=== PATIENT | female | born 1995 | race Two or more races ===

== ENCOUNTER 2024-03-22 18:19 | Emergency (ER) | payer BC ==
[~2024-03-22] VITALS: Ht 172.7 cm; Wt 129.5 kg
[2024-03-22 19:22] LABS: Urine Bacteria FEW /hpf (None Seen); Urine Blood 3+ /uL (Negative); Urine Clarity Ex.Turbid (Clear); Urine Color Light-Orange (Yellow); Urine Hyaline Cast FEW /lpf (0 - 2); Urine Mucus FEW (None Seen); Urine Protein, UAD 3+ (Negative); Urine Specific Gravity 1.033 (1.001-1.035); Urine Urobilinogen Normal (Negative); Urine WBC 50 /hpf (0 - 5); Urine pH 6.5 (5.0-9.0)
[2024-03-22 19:27] LABS: Basophils # (auto) 0 10 ^3/uL (0-0.2); Basophils % (auto) 0.4 % (0.0-2.0); Eosinophils # (auto) 0.1 10 ^3/uL (0-0.8); Eosinophils % (auto) 0.8 % (0.0-7.0); Hematocrit 45.1 % (36.0-46.0); Hemoglobin 15.1 g/dL (12.2-16.2); Lymphocytes # (auto) 2.1 10 ^3/uL (0.4-5.4); Lymphocytes % (auto) 23.8 % (10.0-50.0); Mean Corpuscular Hemoglobin 30.1 pg (28.0-32.0); Mean Corpuscular Hgb Conc. 33.6 g/dL (32.0-36.0); Mean Corpuscular Volume 89.6 fL (80.0-100.0); Monocytes % (auto) 11.1 % (0.0-12.0); Neutrophils # (auto) 5.7 10 ^3/uL (1.6-8.6); Neutrophils % (auto) 63.9 % (37.0-80.0); Platelet Count (auto) 395 10^3/uL (140-450); Red Blood Cells 5.03 10^6/uL (4.0-5.20); Red Cell Distribution Width 13.4 % (11.8-14.3)
--- NOTE | 2024-03-22 19:28 | ED.PDOC ---
GI ASSESSMENT HPI Comments 28-year-old female who came to ER for abdominal pain. Patient is a , approximately 20 weeks . States for the past 2 days she has been experiencing lower abdominal pain, associated bouts of nausea, vomiting, and loose nonbloody diarrhea. States she has a hard time keeping anything in. She denies any vaginal bleeding. Possibly ate some spoiled food. Chief Complaint: Abdominal Pain Time Seen by MD: 19:28 Reviewed Notes: Nurses Notes Allergies: Coded Allergies: NO KNOWN ALLERGIES (Unverified , 03/22/24) Home Meds Active Scripts Metoclopramide Hcl (Reglan) 5 Mg Tab, 5 MG PO Q6HP PRN for 10 Days, #40 TAB Prov:GHASSAN CAMARENA MD 03/22/24 Cefdinir (Cefdinir) 300 Mg Cap, 1 CAP PO BID for 7 Days, #14 CAP Prov:GHASSAN CAMARENA MD 03/22/24 Information Source: Patient Mode of Arrival: Ambulatory Timing: Days Duration: Intermittent Prehospital treatment: None Quality: Aching Vomitus: Watery Stool: Loose, Watery Severity: Moderate Recent: Possible spoiled food Recent Hx of: Current Pain Location: Suprapubic Modifying Factors: Nothing Associated sign and symptoms: Nausea, Vomiting, Diarrhea, Abdominal Pain Past Medical History PAST MEDICAL HISTORY: Denies Surgical History: Denies all surgeries SAP DATA ANALYST History: Denies all SAP DATA ANALYST Hx 4 Para 3 Family History Family History: Reviewed,noncontributory to illness Social History Smoker: Non-Smoker Alcohol: Denies ETOH Use Drugs: Denies Drug Use Lives In: Home Constitutional: denies: chills, diaphoresis, fatigue, fever, malaise, sweats, weakness, others EENTM: denies: blurred vision, double vision, ear bleeding, ear discharge, ear drainage, ear pain, ear ringing, eye pain, eye redness, hearing loss, mouth pain, mouth swelling, nasal discharge, nose bleeding, nose congestion, nose pain, photophobia, tearing, throat pain, throat swelling, voice changes, others Respiratory: denies: cough, hemoptysis, orthopnea, SOB at rest, shortness of breath, SOB with excertion, stridor, wheezing, others Cardiovascular: denies: chest pain, dizzy spells, diaphoresis, Dyspnea on exertion, edema, irregular heart beat, left arm pain, lightheadedness, palpitations, PND, syncope, others Gastrointestinal: reports: abdominal pain, diarrhea, nausea, poor appetite, vomiting; denies: abdomen distended, blood streaked bowels, constipated, dysphagia, difficulty swallowing, hematemesis, melena, poor fluid intake, rectal bleeding, rectal pain, others Genitourinary: denies: abnormal vagina bleeding, burning, dyspareunia, dysuria, flank pain, frequency, hematuria, incontinence, pain, , vagina discharge, urgency, others Neurological: denies: dizziness, fainting, headache, left sided numbness, left sided weakness, numbness, paresthesia, pre-existing deficit, right sided numbness, right sided weakness, seizure, speech problems, tingling, tremors, weakness, others Musculoskeletal: denies: back pain, gout, joint pain, joint swelling, muscle pain, muscle stiffness, neck pain, others Integumetry: denies: bruises, change in color, change in hair/nails, dryness, laceration, lesions, lumps, rash, wounds, others Allergic/Immunocompromised: denies: Difficulty Healing, Frequent Infections, Hives, Itching, others Hematologic/Lymphatic: denies: anemia, blood clots, easy bleeding, easy bruising, swollen glands, others Endocrine: denies: excessive hunger, excessive sweating, excessive thirst, excessive urination, flushing, intolerance to cold, intolerance to heat, unexplained weight gain, unexplained weight loss, others Psychiatric: denies: anxiety, bipolar disorder, depression, hopeless, panic disorder, schizophrenia, sleepless, suicidal, others Physical Exam General Appearance: No Apparent Distress, Normal HEENT: Normal ENT Inspection, Pharynx Normal, TMs Normal Neck: Full Range of Motion, Non-Tender, Normal, Normal Inspection Respiratory: Chest Non-Tender, Lungs Clear, No Accessory Muscle Use, No Respiratory Distress, Normal Breath Sounds Cardiovascular: No Edema, No JVD, No Murmur, No Gallop, Normal Peripheral Pulses, Regular Rate/Rhythm Breast Exam: Deferred Gastrointestinal: No Organomegaly, Non Tender, No Pulsatile Mass, Normal Bowel Sounds, Soft Genitalia: Deferred Pelvic: Deferred Rectal: Deferred Extremities: No calf tenderness, Normal capillary refill, Normal inspection, Normal range of motion, Non-tender, No pedal edema Musculoskeletal : Apperance: Normal Neurologic: Alert, wildfire prevention specialist II-XII nml as Tested, No Motor Deficits, Normal Affect, Normal Mood, No Sensory Deficits Cerebellar Function: Normal Reflexes: Normal Skin: Dry, Normal Color, Warm Lymphatic: No Adenopathy Was a procedure done? Was a procedure done?: No GI differential Dx Differential Diagnosis: Diverticular disease, Gastritis/PUD, Gastroenteritis, UTI, Dehydration, Electrolyte Imbalance, Food Poisoning, X-Ray, Labs, Meds, VS Vital Signs Date Time Temp Pulse Resp B/P (MAP) Pulse Ox O2 Delivery O2 Flow Rate FiO2 03/22/24 22:02 97.7 113 18 116/83 (94) 98 97.7 03/22/24 18:57 97.1 123 16 135/89 (104) 98 Lab Test 03/22/24 18:58 03/22/24 18:45 Range/Units White Blood Count 9.0 4.4-10.8 10^3/uL Red Blood Count 5.03 4.0-5.20 10^6/uL Hemoglobin 15.1 12.2-16.2 g/dL Hematocrit 45.1 36.0-46.0 % Mean Corpuscular Volume 89.6 80.0-100.0 fL Mean Corpuscular Hemoglobin 30.1 28.0-32.0 pg Mean Corpuscular Hemoglobin Concent 33.6 32.0-36.0 g/dL Red Cell Distribution Width 13.4 11.8-14.3 % Platelet Count 395 140-450 10^3/uL Mean Platelet Volume 6.6 L 6.9-10.8 fL Neutrophils (%) (Auto) 63.9 37.0-80.0 % Lymphocytes (%) (Auto) 23.8 10.0-50.0 % Monocytes (%) (Auto) 11.1 0.0-12.0 % Eosinophils (%) (Auto) 0.8 0.0-7.0 % Basophils (%) (Auto) 0.4 0.0-2.0 % Neutrophils # (Auto) 5.7 1.6-8.6 10 ^3/uL Lymphocytes # (Auto) 2.1 0.4-5.4 10 ^3/uL Monocytes # (Auto) 1.0 0-1.3 10 ^3/uL Eosinophils # (Auto) 0.1 0-0.8 10 ^3/uL Basophils # (Auto) 0 0-0.2 10 ^3/uL Nucleated Red Blood Cells 0.0 % Sodium Level 139 136-145 mmol/L Potassium Level 3.1 L 3.5-5.1 mmol/L Chloride Level 105 98-107 mmol/L Carbon Dioxide Level 21 20-31 mmol/L Anion Gap 13 5-15 Blood Urea Nitrogen 8 L 9-23 mg/dL Creatinine 0.84 0.550-1.02 mg/dL Glomerular Filtration Rate Calc 98 >90 mL/min BUN/Creatinine Ratio 9.5 L 10.0-20.0 Serum Glucose 93 74-106 mg/dL Calcium Level 10.5 H 8.7-10.4 mg/dL Total Bilirubin 0.3 0.2-1.0 mg/dL Aspartate Amino Transferase (AST) 65 H 13-40 U/L Alanine Aminotransferase (ALT) 79 H 7-40 U/L Alkaline Phosphatase 74 46-116 U/L Total Protein 8.5 H 5.7-8.2 g/dL Albumin 5.1 H 3.2-4.8 g/dL Lipase 32 12-53 U/L Urine Color Light-orange Yellow Urine Clarity Ex.turbid Clear Urine pH 6.5 5.0-9.0 Urine Specific Holcomb 1.033 1.001-1.035 Urine Protein 3+ H Negative Urine Ketones Trace Negative Urine Blood 3+ H Negative /uL Urine Nitrite Negative Negative Urine Bilirubin Negative Negative Urine Urobilinogen Normal Negative mg/dL Urine Leukocyte Esterase 3+ Negative /uL Urine RBC 604 0 - 4 /hpf Urine WBC 50 0 - 5 /hpf Urine Squamous Epithelial Cells Many <5 /hpf Urine Bacteria Few H None Seen /hpf Urine Hyaline Casts Few 0 - 2 /lpf Urine Mucus Few None Seen Urine Glucose Trace Normal mg/dL Urine Test Positive Negative Current Medications Medications (Trade) Dose Ordered Sig/Karen Route Start Time Stop Time Status Last Admin Ondansetron HCl (Zofran Po) 4 mg ONCE ONCE PO 03/22/24 19:15 03/22/24 19:16 DC 03/22/24 21:54 Cephalexin (Keflex Capsule) 500 mg ONCE ONCE PO 03/22/24 20:15 03/22/24 21:24 DC 03/22/24 21:54 Potassium Chloride (Klor-Con Tablet) 20 meq ONCE ONCE PO 03/22/24 20:15 03/22/24 21:24 DC 03/22/24 21:54 Time of 1ST Reevaluation: 19:24 Reevaluation 1ST: Unchanged Patient Education/Counseling: Diagnosis, Treatment Family Education/Counseling: No Family Present Departure 1 Departure Time of Disposition: 20:30 (I personally reviewed and interpreted the lab and imaging studies. I reviewed the results with the patient and using shared decision making we decided on outpatient management with closed outpatient follow up. I did notify the patient that there was a risk that their condition could worsen and they agreed to immediately return to the Emergency Department for any worsening symptoms or concerns. ) Impression: Primary Impression: Nausea and vomiting Additional Impressions: Nausea, vomiting and diarrhea 20 weeks gestation of Disposition: HOME / SELF CARE / HOMELESS Condition: Stable e-Prescriptions Metoclopramide Hcl (Reglan) 5 Mg Tab 5 MG PO Q6HP PRN for 10 Days, #40 TAB Prov: GHASSAN CAMARENA MD 03/22/24 Cefdinir (Cefdinir) 300 Mg Cap 1 CAP PO BID for 7 Days, #14 CAP Prov: GHASSAN CAMARENA MD 03/22/24 Discharged With: Self Critical Care Note Critical Care Time?: No Stability Stability form required: No Heart Score Heart Score: Heart Score Response (Comments) Value History N/A 0 EKG N/A 0 Age N/A 0 Risk Factors N/A 0 Troponin N/A 0 Total 0 I personally scribed for GHASSAN CAMARENA MD ([email or web address]) on 03/22/24 at 19:28. Electronically submitted by Marcel Bell ([email or web address]). GHASSAN CAMARENA MD Mar 22, 2024 19:28
[2024-03-22 19:42] LABS: Alkaline Phosphatase 74 U/L (46-116); Anion Gap 13 (5-15); BUN/Creatinine Ratio 9.5 (10.0-20.0); Carbon Dioxide 21 mmol/L (20-31); Chloride 105 mmol/L (98-107); Glucose 93 mg/dL (74-106); Lipase 32 U/L (12-53); Sodium 139 mmol/L (136-145)
[2024-03-22 19:43] LABS: Bilirubin, Total 0.3 mg/dL (0.2-1.0)
[2024-03-22 19:57] LABS: Alanine Aminotransferase 79 U/L (7-40); Albumin 5.1 g/dL (3.2-4.8); Aspartate Aminotransferase 65 U/L (13-40); Blood Urea Nitrogen 8 mg/dL (9-23); Calcium 10.5 mg/dL (8.7-10.4); Potassium 3.1 mmol/L (3.5-5.1); Total Protein 8.5 g/dL (5.7-8.2)
[2024-03-22] MEDS ORDERED: METO5TAB67 PO (20:49)
[2024-03-22] MEDS ORDERED: CEFD300C2 PO (20:49)
--- NOTE | 2024-03-22 20:50 | DVH ---
LIMITED OB ULTRASOUND > 14 WKS: HISTORY: abd pain, 20 wk TECHNIQUE: Multiple real-time grayscale images of the gravid uterus with duplex Doppler color flow an d M-mode spectral analysis. TRANSDUCER: Transabdominal FINDINGS: IUP single live fetus at 18 weeks 4 days based on composite averages of the BPD, head circumference, abdominal circumference and femur length Estimated weight 241.8 grams heart rate 146 beats per minute MVP: 4.5 cm Cervix 3.2 cm Cephalic Presentation Grade 1 Placenta without previa or abruption. IMPRESSION: 1. IUP single live fetus at 18 weeks 4 days AUA corresponding to an SASKIA of 08/19/2024. 2. FHR: 146 bpm HS:Y
[2024-03-22] MEDS: LOPERAMIDE HCL 2 MG CAP/TAB PO ONE (21:53)
[2024-03-22] MEDS: ONDANSETRON ODT 4 MG TAB PO ONE (21:54)
[2024-03-22] MEDS: POTASSIUM CHL 20 Meq TABLET PO ONE (21:54)
[2024-03-22] MEDS: CEPHALEXIN 250 MG CAP PO ONE (21:54)
[2024-03-22 22:02] VITALS: BP 116/83; PULSE 113; RESP 18; TEMP 97.7; O2SAT 98
== END 2024-03-22 22:04 | disposition home or self-care (01) ==
LOC: ER 18:19
DX: O21.0 Mild hyperemesis gravidarum (principal); Z3A.20 20 weeks gestation of pregnancy
CPT/HCPCS: 36415; 76805; 80053; 81001; 81025; 83690; 85025; 99284; Q0162

== ENCOUNTER 2024-03-30 19:38 | Emergency (ER) | payer BC ==
[~2024-03-30] VITALS: Ht 172.7 cm; Wt 129.5 kg
[~2024-03-30 19:38] MED LIST: CEFD300C2 PO; METO5TAB67 PO
--- NOTE | 2024-03-30 20:14 | ED.PDOC ---
History of Present Illness HPI Comments 28Y F presents to ED with chief complaint cough x3days with fever, SOB, rib pain, chest pain, low back pain, and abd pain. Pt states the abd pain began 1 hour ago. Pt is currently 19wks and 5 days . Pt denies vaginal cramping and vaginal bleeding. Pt states her daughters are currently ill. Time Seen by MD: 19:58 Reviewed Notes: Nurses Notes, Medications, Allergies Allergies: Coded Allergies: NO KNOWN ALLERGIES (Unverified , 03/22/24) Home Meds Active Scripts Metoclopramide Hcl (Reglan) 5 Mg Tab, 5 MG PO Q6HP PRN for 10 Days, #40 TAB Prov:GHASSAN CAMARENA MD 03/22/24 Cefdinir (Cefdinir) 300 Mg Cap, 1 CAP PO BID for 7 Days, #14 CAP Prov:GHASSAN CAMARENA MD 03/22/24 Information Source: Patient Mode of Arrival: Ambulatory Severity: Moderate Timing: Days Duration: Since onset Past Medical History PAST MEDICAL HISTORY: Denies Surgical History: Denies all surgeries RENEWABLE ENERGY PROJECT MANAGER History: Denies all RENEWABLE ENERGY PROJECT MANAGER Hx Family History Family History: Reviewed,noncontributory to illness Social History Smoker: Non-Smoker Alcohol: Denies ETOH Use Drugs: Denies Drug Use Lives In: Home Constitutional: reports: fever; denies: chills, diaphoresis, fatigue, malaise, sweats, weakness, others EENTM: denies: blurred vision, double vision, ear bleeding, ear discharge, ear drainage, ear pain, ear ringing, eye pain, eye redness, hearing loss, mouth pa in, mouth swelling, nasal discharge, nose bleeding, nose congestion, nose pain, photophobia, tearing, throat pain, throat swelling, voice changes, others Respiratory: reports: cough, shortness of breath; denies: hemoptysis, orthopnea, SOB at rest, SOB with excertion, stridor, wheezing, others Cardiovascular: reports: chest pain; denies: dizzy spells, diaphoresis, Dyspnea on exertion, edema, irregular heart beat, left arm pain, lightheadedness, palpitations, PND, syncope, others Gastrointestinal: reports: abdominal pain; denies: abdomen distended, blood streaked bowels, constipated, diarrhea, dysphagia, difficulty swallowing, hematemesis, melena, nausea, poor appetite, poor fluid intake, rectal bleeding, rectal pain, vomiting, others Genitourinary: reports: ; denies: abnormal vagina bleeding, burning, dyspareunia, dysuria, flank pain, frequency, hematuria, incontinence, pain, vagina discharge, urgency, others Neurological: denies: dizziness, fainting, headache, left sided numbness, left sided weakness, numbness, paresthesia, pre-existing deficit, right sided numbness, right sided weakness, seizure, speech problems, tingling, tremors, weakness, others Musculoskeletal: reports: back pain, others (rib pain); denies: gout, joint pain, joint swelling, muscle pain, muscle stiffness, neck pain Integumetry: denies: bruises, change in color, change in hair/nails, dryness, laceration, lesions, lumps, rash, wounds, others Allergic/Immunocompromised: denies: Difficulty Healing, Frequent Infections, Hives, Itching, others Hematologic/Lymphatic: denies: anemia, blood clots, easy bleeding, easy bruising, swollen glands, others Endocrine: denies: excessive hunger, excessive sweating, excessive thirst, excessive urination, flushing, intolerance to cold, intolerance to heat, unexplained weight gain, unexplained weight loss, others Psychiatric: denies: anxiety, bipolar disorder, depression, hopeless, panic disorder, schizophrenia, sleepless, suicidal, others All Other Systems: Reviewed and Negative Physical Exam General Appearance: No Apparent Distress, Normal HEENT: Normal ENT Inspection, Pharynx Normal, TMs Normal Neck: Full Range of Motion, Non-Tender, Normal, Normal Inspection Respiratory: Chest Non-Tender, Lungs Clear, No Accessory Muscle Use, No Respiratory Distress, Normal Breath Sounds Cardiovascular: No Edema, No JVD, No Murmur, No Gallop, Normal Peripheral Pulses, Regular Rate/Rhythm Breast Exam: Deferred Gastrointestinal: No Organomegaly, Non Tender, No Pulsatile Mass, Normal Bowel Sounds, Soft, Other () Genitalia: Deferred Pelvic: Deferred Rectal: Deferred Extremities: No calf tenderness, Normal capillary refill, Normal inspection, Normal range of motion, Non-tender, No pedal edema Musculoskeletal : Apperance: Normal Neurologic: Alert, pelt inspector II-XII nml as Tested, No Motor Deficits, Normal Affect, Normal Mood, No Sensory Deficits Cerebellar Function: NOT DONE Reflexes: NOT DONE Skin: Dry, Normal Color, Warm Lymphatic: No Adenopathy Was a procedure done? Was a procedure done?: No Differential Dx Considerations may include: pneumonia, viral syndrome, dehydration X-Ray, Labs, Meds, VS Vital Signs Date Time Temp Pulse Resp B/P (MAP) Pulse Ox O2 Delivery O2 Flow Rate FiO2 03/30/24 21:49 99.5 03/30/24 20:19 99.7 126 18 115/68 (84) 98 Lab Test 03/30/24 21:36 03/30/24 21:12 Range/Units Influenza Type A Antigen Positive Negative Influenza Type B Antigen Negative Negative SARS-CoV-2 Antigen (Rapid) Negative NEGATIVE White Blood Count 7.5 4.4-10.8 10^3/uL Red Blood Count 4.03 4.0-5.20 10^6/uL Hemoglobin 12.1 L 12.2-16.2 g/dL Hematocrit 35.9 L 36.0-46.0 % Mean Corpuscular Volume 89.1 80.0-100.0 fL Mean Corpuscular Hemoglobin 30.0 28.0-32.0 pg Mean Corpuscular Hemoglobin Concent 33.6 32.0-36.0 g/dL Red Cell Distribution Width 13.5 11.8-14.3 % Platelet Count 319 140-450 10^3/uL Mean Platelet Volume 6.8 L 6.9-10.8 fL Neutrophils (%) (Auto) 82.5 H 37.0-80.0 % Lymphocytes (%) (Auto) 8.3 L 10.0-50.0 % Monocytes (%) (Auto) 8.8 0.0-12.0 % Eosinophils (%) (Auto) 0.0 0.0-7.0 % Basophils (%) (Auto) 0.4 0.0-2.0 % Neutrophils # (Auto) 6.2 1.6-8.6 10 ^3/uL Lymphocytes # (Auto) 0.6 0.4-5.4 10 ^3/uL Monocytes # (Auto) 0.7 0-1.3 10 ^3/uL Eosinophils # (Auto) 0 0-0.8 10 ^3/uL Basophils # (Auto) 0 0-0.2 10 ^3/uL Nucleated Red Blood Cells 0.1 % Sodium Level 136 136-145 mmol/L Potassium Level 3.8 3.5-5.1 mmol/L Chloride Level 105 98-107 mmol/L Carbon Dioxide Level 26 20-31 mmol/L Anion Gap 5 5-15 Blood Urea Nitrogen < 5 L 9-23 mg/dL Creatinine 0.61 0.550-1.02 mg/dL Glomerular Filtration Rate Calc 126 >90 mL/min BUN/Creatinine Ratio 8.2 L 10.0-20.0 Serum Glucose 90 74-106 mg/dL Calcium Level 9.9 8.7-10.4 mg/dL Current Medications Medications (Trade) Dose Ordered Sig/Karen Route Start Time Stop Time Status Last Admin Sodium Chloride 1,000 ml @ 1,000 mls/hr Q1H ONCE IV 03/30/24 20:15 03/30/24 21:14 DC 03/30/24 21:50 Ondansetron HCl (Zofran) 4 mg ONCE ONCE IV 03/30/24 20:15 03/30/24 20:16 DC 03/30/24 21:51 Acetaminophen (Tylenol Tablet) 650 mg ONCE ONCE PO 03/30/24 20:15 03/30/24 20:16 DC 03/30/24 21:49 [place] [id number] Ph: [phone] DIAGNOSTIC IMAGING Diagnostic Imaging Report : [id number] Signed PATIENT: NIKI KEARNS ACCT: [id number] UNIT: [id number] : 1995 LOC: ER ROOM / BED: / AGE / SEX: 28 / F ADM STATUS: REG ER SERVICE 09 ORDERING PHYSICIAN: ROCCO CUNNINGHAM MD PROCEDURE(s): OBUS - OB ULTRASOUND COMP GTR 14 WKS REASON: abdominal pain 19wks 5day ORDER NUMBER(s): [id number], ACCESSION NUMBER(s): [id number] OB ULTRASOUND, LIMITED CLINICAL INDICATION: abdominal pain 19wks 5day TECHNIQUE: Multiple grayscale ultrasound and M-mode images were obtained of the pelvis for evaluation of intrauterine . COMPARISON: US OB ULTRASOUND COMP GTR 14 WKS on DOS: 03/22/24 FINDINGS: A single living fetus is seen in cephalic presentation. Biparietal diameter: 4.24 cm (18 weeks, 6 days) Head Circumference: 16.34 cm (19 weeks, 1 days) Abdomen Circumference: 13.57 cm (19 weeks, 0 days) Femur Length: 3.16 cm (19 weeks, 6 days) Estimated weight: 287 grams (+/- 43 grams). Placenta: Anterior. Amniotic fluid: Visibly normal. Cervical length 3.2 cm and closed. heart rate: 160 beats/min. A complete anatomic survey was not performed on this exam. IMPRESSION: Single intrauterine with an estimated gestational age of 19 weeks, 2 days, corresponding to an estimated date of delivery of 08/22/2024. ATED BY: DEMETRIO COOK MD DICTATED DATE/TIME: 03/30/242051 SIGNED BY: DEMETRIO COOK MD SIGNED DATE/TIME: 03/30/242051 CC: Time of 1ST Reevaluation: 20:28 Reevaluation 1ST: Unchanged Patient Education/Counseling: Diagnosis, Treatment Family Education/Counseling: No Family Present Departure 1 Departure Time of Disposition: 22:26 (Patient has the flu and dehydration. her vitals normalized after receiving fluids. ) Impression: Primary Impression: Influenza A Additional Impressions: Viral syndrome Dehydration Qualified Codes: Z3A.19 - 19 weeks gestation of Disposition: 01 HOME / SELF CARE / HOMELESS Condition: Stable Additional Instructions: You have influenza A. It is important to stay well rested and well hydrated. You can take Tylenol as needed for pain and fever. For a sore throat you can drink warm tea with honey. You were prescribed tamiflu for the flu. Please take as directed. You should follow up with your regular doctor within 1 week to ensure you are doing better. If your symptoms worsen or you have any other concerns please return to the emergency room. e-Prescriptions Oseltamivir Phosphate (Tamiflu) 75 Mg Cap 75 MG PO BID for 5 Days, #10 CAP Prov: ROCCO CUNNINGHAM MD 03/30/24 Discharged With: Self Critical Care Note Critical Care Time?: No Stability Stability form required: No Heart Score Heart Score: Heart Score Response (Comments) Value History N/A 0 EKG N/A 0 Age N/A 0 Risk Factors N/A 0 Troponin N/A 0 Total 0 I personally scribed for ROCCO CUNNINGHAM MD ([facility]) on 03/30/24 at 20:14. Electronically submitted by Dora Lira ([facility]). I personally scribed for ROCCO CUNNINGHAM MD ([facility]) on 03/30/24 at 21:31. Electronically submitted by Dora Lira ([facility]). ROCCO CUNNINGHAM MD Mar 30, 2024 20:14
--- NOTE | 2024-03-30 20:55 | DVH ---
OB ULTRASOUND, LIMITED CLINICAL INDICATION: abdominal pain 19wks 5day TECHNIQUE: Multiple grayscale ultrasound and M-mode images were obtained of the pelvis for evaluation of intrauterine . COMPARISON: US OB ULTRASOUND COMP GTR 14 WKS on DOS: 03/22/24 FINDINGS: A single living fetus is seen in cephalic presentation. Biparietal diameter: 4.24 cm (18 weeks, 6 days) Head Circumference: 16.34 cm (19 weeks, 1 days) Abdomen Circumference: 13.57 cm (19 weeks, 0 days) Femur Length: 3.16 cm (19 weeks, 6 days) Estimated weight: 287 grams (+/- 43 grams). Placenta: Anterior. Amniotic fluid: Visibly normal. Cervical length 3.2 cm and closed. heart rate: 160 beats/min. A complete anatomic survey was not performed on this exam. IMPRESSION: Single intrauterine with an estimated gestational age of 19 weeks, 2 days, corresponding to an estimated date of delivery of 08/22/2024.
[2024-03-30 21:41] LABS: Chloride 105 mmol/L (98-107); Potassium 3.8 mmol/L (3.5-5.1); Sodium 136 mmol/L (136-145)
[2024-03-30 21:42] LABS: Anion Gap 5 (5-15); Calcium 9.9 mg/dL (8.7-10.4); Carbon Dioxide 26 mmol/L (20-31)
[2024-03-30 21:45] LABS: Basophils # (auto) 0 10 ^3/uL (0-0.2); Basophils % (auto) 0.4 % (0.0-2.0); Eosinophils # (auto) 0 10 ^3/uL (0-0.8); Hematocrit 35.9 % (36.0-46.0); Hemoglobin 12.1 g/dL (12.2-16.2); Lymphocytes # (auto) 0.6 10 ^3/uL (0.4-5.4); Lymphocytes % (auto) 8.3 % (10.0-50.0); Mean Corpuscular Hgb Conc. 33.6 g/dL (32.0-36.0); Mean Corpuscular Volume 89.1 fL (80.0-100.0); Monocytes # (auto) 0.7 10 ^3/uL (0-1.3); Monocytes % (auto) 8.8 % (0.0-12.0); Neutrophils # (auto) 6.2 10 ^3/uL (1.6-8.6); Neutrophils % (auto) 82.5 % (37.0-80.0); Nucleated Red Blood Cells % 0.1 %; Platelet Count (auto) 319 10^3/uL (140-450); Red Blood Cells 4.03 10^6/uL (4.0-5.20); Red Cell Distribution Width 13.5 % (11.8-14.3); White Blood Cell 7.5 10^3/uL (4.4-10.8)
[2024-03-30 21:47] LABS: Glucose 90 mg/dL (74-106)
[2024-03-30] MEDS: ACETAMINOPHEN 325 MG TAB PO ONE (21:49)
[2024-03-30 21:50] LABS: BUN/Creatinine Ratio 8.2 (10.0-20.0); Blood Urea Nitrogen < 5 mg/dL (9-23)
[2024-03-30] MEDS: SODIUM CHLORIDE 0.9% 1,000 ML IV ONE ×2 (21:50→23:00)
[2024-03-30] MEDS: ONDANSETRON HCL 4 MG/2 ML VIAL IV ONE (21:51)
[2024-03-30 22:20] LABS: COVID19 ANTIGEN SOFIA FIA NEGATIVE (NEGATIVE)
[2024-03-30 22:21] LABS: Rapid Influenza A Positive (Negative); Rapid Influenza B Negative (Negative)
[2024-03-30] MEDS ORDERED: TAMIFLU PO (22:29)
[2024-03-30 23:54] VITALS: BP 115/62; PULSE 99; RESP 16; TEMP 98; O2SAT 96
== END 2024-03-31 00:01 | disposition home or self-care (01) ==
LOC: ER 19:38
DX: O26.892 Other specified pregnancy related conditions, second trimester (principal); J10.1 Influenza due to other identified influenza virus with other respiratory manifestations; O98.512 Other viral diseases complicating pregnancy, second trimester; E86.0 Dehydration; O99.512 Diseases of the respiratory system complicating pregnancy, second trimester; Z3A.19 19 weeks gestation of pregnancy; Z20.822 Contact with and (suspected) exposure to COVID-19
CPT/HCPCS: 36415; 76805; 80048; 85025; 87426; 87804; 96361; 96374; 99285; J2405; J7030

== ENCOUNTER 2024-07-28 14:22 | Observation (INO) | payer BC ==
[~2024-07-28 14:22] MED LIST changes: +TAMIFLU PO
[2024-07-28] MEDS ORDERED: PREN-96 PO (15:41)
--- NOTE | 2024-07-28 15:51 | DVHDS2 ---
Physician Discharge Progress N Final Diagnosis: IUP 36.5 wk, false labor Operations or Procedures: Operations or Procedures NST, categ 1 Labor check, Cx 1.5/thick/post -3 not in labor mild irreg contractions only Condition on Discharge: Stable Disposition: Home Discharge Instructions: Diet: Regular Activity: Light activity Follow Up/Referral: prn Medications: na Follow Up Care: Discharge Statement: "Patient was advised to return to the ER or call 911 if any headaches, dizziness, shortness of breath, chest pain, abdominal pain, bleeding, fevers, or worsening of medical condition. Patient was counseled about treatment plan, medications, possible side effects, patientverbalized understanding. All questions were answered to the best of my ability. This discharge took greater then 30 minutes in planning, reviewing documentation, counseling the patient, and discussing with other team members." Visit Coding OBGYN Date of Service: Jul 28, 2024 Billing Provider: SOCRATES HARRY COLLEGE TUTOR Common Visit Codes: 18039-SSU/OBS SAME DATE (HIGH) GORDO GRIMES DO Jul 28, 2024 15:51
== END 2024-07-28 16:06 | disposition home or self-care (01) ==
LOC: LDRP 14:22
PROVIDERS: ADMIT Obstetrics & Gynecology; ATTEND Obstetrics & Gynecology
DX: O47.03 False labor before 37 completed weeks of gestation, third trimester (principal); Z98.890 Other specified postprocedural states; Z79.899 Other long term (current) drug therapy; Z3A.36 36 weeks gestation of pregnancy
CPT/HCPCS: 59025; 81002; 94760; G0378

== ENCOUNTER 2024-08-02 10:10 | Observation (INO) | payer BC ==
[~2024-08-02 10:10] MED LIST changes: -CEFD300C2 PO; -METO5TAB67 PO; +PREN-96 PO; -TAMIFLU PO
[2024-08-02 10:49] LABS: Urine Bacteria None Seen /hpf (None Seen)
[2024-08-02 10:59] LABS: Urine Blood TRACE /uL (Negative); Urine Clarity Turbid (Clear); Urine Color Light-Orange (Yellow); Urine Hyaline Cast FEW /lpf (0 - 2); Urine Mucus FEW (None Seen); Urine Protein, UAD TRACE (Negative); Urine Specific Gravity 1.029 (1.001-1.035); Urine Squamous Epithelial Cell MANY /hpf (<5); Urine Urobilinogen Normal (Negative); Urine WBC 41 /HPF (0-5)
[2024-08-02 11:05] LABS: Amphetamine Screen, Urine Neg (NEGATIVE); Barbiturate Scree,Urine Neg (NEGATIVE); Benzodiazephine Screen, Urine Neg (NEGATIVE); Cocaine Screen, Urine Neg (NEGATIVE); Opiate Scree,Urine Neg (NEGATIVE); Phencyclidine Screen, Urine Neg (NEGATIVE)
[2024-08-02 11:06] LABS: Cannabinoid Screen, Urine Neg (NEGATIVE); Fern Testing Negative
--- NOTE | 2024-08-02 11:36 | DVH ---
BIOPHYSICAL PROFILE HISTORY: Possible SROM, LOF TECHNIQUE: Multiple transabdominal real-time grayscale sonographic images through the gravid uterus o f the fetus with duplex doppler color flow and M-mode spectral analysis FINDINGS: BIOPHYSICAL PROFILE: breathing score: 2 movement score: 2 tone score: 2 Quantitative PRECIOUS score: 2 (PRECIOUS: 12.5 cm.) Total score: 8/8 Single live fetus in cephalic presentation. heart rate 130 beats per minute. Grade anterior placenta without previa or abruption Biophysical profile score 8/8 corresponding to an SASKIA of 08/20/24 IMPRESSION: Biophysical profile score: 8/8
--- NOTE | 2024-08-03 07:51 | DVHDS2 ---
Physician Discharge Progress N Final Diagnosis: iup at 37wks srom ruledd out Operations or Procedures: Operations or Procedures nst reactive reviewed Condition on Discharge: Good Disposition: Home Discharge Instructions: Diet: Regular Activity: No Restrictions, As Tolerated Medications: na Follow Up Care: Specialist: 1w Discharge Statement: "Patient was advised to return to the ER or call 911 if any headaches, dizziness, shortness of breath, chest pain, abdominal pain, bleeding, fevers, or worsening of medical condition. Patient was counseled about treatment plan, medications, possible side effects, patientverbalized understanding. All questions were answered to the best of my ability. This discharge took greater then 30 minutes in planning, reviewing documentation, counseling the patient, and discussing with other team members." Visit Coding OBGYN Date of Service: August 02, 2024 Billing Provider: RUBIO CEDENO DO GOVERNMENT PROGRAM MANAGER Common Visit Codes: 78961-QFXESAJ OBS CARE (HIGH) GOVERNMENT PROGRAM MANAGER Procedure Codes: 28517-66- NON-STRESS TEST RUBIO CEDENO DO August 03, 2024 07:51
== END 2024-08-02 11:39 | disposition home or self-care (01) ==
LOC: LDRP 10:10 → UNDOADMOB 10:10 → LDRP 10:23 → UNDODISOB 11:39
PROVIDERS: ADMIT Obstetrics & Gynecology; ATTEND Obstetrics & Gynecology
DX: O62.9 Abnormality of forces of labor, unspecified (principal); Z98.890 Other specified postprocedural states; Z79.899 Other long term (current) drug therapy; Z3A.37 37 weeks gestation of pregnancy
CPT/HCPCS: 76818; 80307; 81001; 81002; 84112; 94760; G0378; Q0114; 59025; 76819

== ENCOUNTER 2024-08-16 11:20 | Observation (INO) | payer BC ==
[2024-08-16 12:47] LABS: Basophils # (auto) 0 10 ^3/uL (0-0.2); Basophils % (auto) 0.3 % (0.0-2.0); Eosinophils # (auto) 0 10 ^3/uL (0-0.8); Eosinophils % (auto) 0.4 % (0.0-7.0); Hematocrit 34.5 % (36.0-46.0); Hemoglobin 11.7 g/dL (12.2-16.2); Lymphocytes # (auto) 1.5 10 ^3/uL (0.4-5.4); Lymphocytes % (auto) 19.5 % (10.0-50.0); Mean Corpuscular Hemoglobin 29.1 pg (28.0-32.0); Mean Corpuscular Hgb Conc. 34.1 g/dL (32.0-36.0); Mean Corpuscular Volume 85.5 fL (80.0-100.0); Monocytes # (auto) 0.5 10 ^3/uL (0-1.3); Monocytes % (auto) 6.1 % (0.0-12.0); Neutrophils # (auto) 5.8 10 ^3/uL (1.6-8.6); Neutrophils % (auto) 73.7 % (37.0-80.0); Platelet Count (auto) 436 10^3/uL (140-450); Red Blood Cells 4.03 10^6/uL (4.0-5.20); Red Cell Distribution Width 14.1 % (11.8-14.3); White Blood Cell 7.8 10^3/uL (4.4-10.8)
[2024-08-16 13:02] LABS: INR 1.01 (0.9-1.15); Partial Thromboplastin Time 25.4 SEC (24.5-34.5); Prothrombin Time 10.7 sec (9.3-11.8)
[2024-08-16 13:11] LABS: Alanine Aminotransferase 27 U/L (7-40); Albumin 4.2 g/dL (3.2-4.8); Anion Gap 10 (5-15); Aspartate Aminotransferase 29 U/L (13-40); Blood Urea Nitrogen 13 mg/dL (9-23); Calcium 9.4 mg/dL (8.7-10.4); Carbon Dioxide 22 mmol/L (20-31); Chloride 105 mmol/L (98-107); Potassium 3.9 mmol/L (3.5-5.1); Sodium 137 mmol/L (136-145); Total Protein 6.7 g/dL (5.7-8.2); Uric Acid 6.1 mg/dL (3.1-7.8)
[2024-08-16 13:12] LABS: Alkaline Phosphatase 131 U/L (46-116); Bilirubin, Total 0.3 mg/dL (0.2-1.0); Glucose 110 mg/dL (74-106)
[2024-08-16 13:18] LABS: Urine Bacteria FEW /hpf (None Seen); Urine Blood Negative /uL (Negative); Urine Clarity Turbid (Clear); Urine Color Light-Orange (Yellow); Urine Hyaline Cast FEW /lpf (0 - 2); Urine Mucus FEW (None Seen); Urine Protein, UAD TRACE (Negative); Urine Squamous Epithelial Cell MOD /hpf (<5); Urine Urobilinogen Normal (Negative); Urine WBC 15 /HPF (0-5); Urine pH 5.5 (5.0-9.0)
[2024-08-16 13:31] LABS: Protein, Urine 26.5 mg/dL (1-14)
[2024-08-16 13:34] LABS: Creatinine, Urine 187.77 mg/dL (30.0-125.0); Urine Protein/Creatinine Ratio 0.14
--- NOTE | 2024-08-16 14:36 | DVHDS2 ---
Physician Discharge Progress N Final Diagnosis: iup at 39wks labor check Operations or Procedures: Operations or Procedures nst reactive reviewed,sono Condition on Discharge: Good Disposition: Home Discharge Instructions: Diet: Regular Activity: No Restrictions, As Tolerated Medications: na Follow Up Care: Specialist: sat for induction tmw Discharge Statement: "Patient was advised to return to the ER or call 911 if any headaches, dizziness, shortness of breath, chest pain, abdominal pain, bleeding, fevers, or worsening of medical condition. Patient was counseled about treatment plan, medications, possible side effects, patientverbalized understanding. All questions were answered to the best of my ability. This discharge took greater then 30 minutes in planning, reviewing documentation, counseling the patient, and discussing with other team members." Visit Coding OBGYN Date of Service: August 16, 2024 Billing Provider: RUBIO CEDENO DO AUTOMATION DEVELOPER Common Visit Codes: [id number] OBS CARE (HIGH) AUTOMATION DEVELOPER Procedure Codes: 83784-39- NON-STRESS TEST RUBIO CEDENO DO August 16, 2024 14:36
== END 2024-08-16 14:01 | disposition home or self-care (01) ==
LOC: LDRP 11:20
PROVIDERS: ADMIT Obstetrics & Gynecology; ATTEND Obstetrics & Gynecology
DX: O13.3 Gestational [pregnancy-induced] hypertension without significant proteinuria, third trimester (principal); O62.9 Abnormality of forces of labor, unspecified; Z98.890 Other specified postprocedural states; Z79.899 Other long term (current) drug therapy; Z3A.39 39 weeks gestation of pregnancy
CPT/HCPCS: 36415; 59025; 80053; 81001; 81002; 82570; 84156; 84550; 85025; 85610; 85730; 94760; G0378

== ENCOUNTER 2024-08-17 10:15 | Inpatient (IN) | payer BC ==
[~2024-08-17] VITALS: Ht 175.3 cm; Wt 131.5 kg
[2024-08-17] MEDS ORDERED: BUTORPHANOL TARTRATE 2 MG/1 ML VIAL IV PRN ×2 (10:45)
[2024-08-17] MEDS ORDERED: LIDOCAINE 2%HCL (LOCAL ANESTH.) INJ 20ML MDV IJ PRN (10:45)
[2024-08-17 11:07] LABS: Basophils # (auto) 0.1 10 ^3/uL (0-0.2); Basophils % (auto) 0.9 % (0.0-2.0); Eosinophils # (auto) 0 10 ^3/uL (0-0.8); Eosinophils % (auto) 0.4 % (0.0-7.0); Hematocrit 34.5 % (36.0-46.0); Hemoglobin 11.8 g/dL (12.2-16.2); Lymphocytes # (auto) 1.7 10 ^3/uL (0.4-5.4); Lymphocytes % (auto) 19.4 % (10.0-50.0); Mean Corpuscular Hemoglobin 29.3 pg (28.0-32.0); Mean Corpuscular Hgb Conc. 34.1 g/dL (32.0-36.0); Mean Corpuscular Volume 85.8 fL (80.0-100.0); Monocytes # (auto) 0.7 10 ^3/uL (0-1.3); Monocytes % (auto) 7.8 % (0.0-12.0); Neutrophils # (auto) 6.2 10 ^3/uL (1.6-8.6); Neutrophils % (auto) 71.5 % (37.0-80.0); Platelet Count (auto) 412 10^3/uL (140-450); Red Blood Cells 4.02 10^6/uL (4.0-5.20); Red Cell Distribution Width 14.3 % (11.8-14.3); White Blood Cell 8.7 10^3/uL (4.4-10.8)
[2024-08-17 11:15] LABS: Urine Bacteria FEW /hpf (None Seen); Urine Blood 1+ /uL (Negative); Urine Protein, UAD TRACE (Negative); Urine Specific Gravity 1.027 (1.001-1.035); Urine Squamous Epithelial Cell MOD /hpf (<5); Urine Urobilinogen Normal (Negative); Urine WBC 26 /HPF (0-5)
[2024-08-17 11:19] LABS: Urine Clarity Cloudy (Clear); Urine Color Yellow (Yellow)
[2024-08-17 11:23] LABS: Alanine Aminotransferase 24 U/L (7-40); Albumin 4.3 g/dL (3.2-4.8); Anion Gap 12 (5-15); Aspartate Aminotransferase 28 U/L (13-40); BUN/Creatinine Ratio 23.1 (10.0-20.0); Blood Urea Nitrogen 12 mg/dL (9-23); Calcium 9.3 mg/dL (8.7-10.4); Chloride 105 mmol/L (98-107); Potassium 3.9 mmol/L (3.5-5.1); Sodium 137 mmol/L (136-145); Total Protein 7.2 g/dL (5.7-8.2); Uric Acid 5.9 mg/dL (3.1-7.8)
[2024-08-17 11:24] LABS: Amphetamine Screen, Urine Neg (NEGATIVE); Barbiturate Scree,Urine Neg (NEGATIVE); Benzodiazephine Screen, Urine Neg (NEGATIVE); Cannabinoid Screen, Urine Neg (NEGATIVE); Cocaine Screen, Urine Neg (NEGATIVE); Opiate Scree,Urine Neg (NEGATIVE); Phencyclidine Screen, Urine Neg (NEGATIVE)
[2024-08-17 11:25] LABS: Alkaline Phosphatase 127 U/L (46-116); Bilirubin, Total 0.3 mg/dL (0.2-1.0); Carbon Dioxide 20 mmol/L (20-31); Glucose 74 mg/dL (74-106)
[2024-08-17 11:26] LABS: INR 1.01 (0.9-1.15); Partial Thromboplastin Time 26.5 SEC (24.5-34.5); Prothrombin Time 10.7 sec (9.3-11.8)
[2024-08-17] MEDS: PHISODERM TOP SOLN 240ML BTL TOP PRN (12:08)
[2024-08-17] MEDS: DERMOPLAST 60ML BOTTLE TOP PRN (12:08)
[2024-08-17] MEDS: WITCH HAZEL-GLYCERIN PAD TOP PRN (12:08)
[2024-08-17] MEDS: miSOPROStol 50 MCG per PRE-CUT 1/2 TAB PO PRN (12:09)
[2024-08-17 12:14] LABS: Protein, Urine 25.5 mg/dL (1-14)
[2024-08-17 12:17] LABS: Creatinine, Urine 123.86 mg/dL (30.0-125.0); Urine Protein/Creatinine Ratio 0.21
--- NOTE | 2024-08-17 13:26 | DVHHP2 ---
OB CC & HPI Date Date of Admission: August 17, 2024 Patient Identification: : 5 Para: 3 EDC: August 20, 2024 EGA: 39.4 Chief Complaints: Reason for admission: induction of labor Indication for induction: maternal discomfort History of Present Complaints 29y IUP 39.4 wk admitted for elective IOL per Dr Peng Patient has had a normal, uncomplicated BMI 42 GBS collected, results unknown Baby EFW approx 7lb 9oz last week by US Past Medical History Cardiac: No pertinent Hx Pulmonary: No pertinent Hx Central Nervous System: No pertinent Hx GI: No pertinent Hx Hemotology/Oncology: No pertinent Hx Hepatobiliary: No pertinent Hx Psychiatric: No pertinent Hx Musculoskeletal: No pertinent Hx Rheumotologic: No pertinent Hx Infectious Disease: No peritnent Hx ENT: No pertinent Hx Renal/: No pertinent Hx Endocrine: No pertinent Hx Dermatology: No pertinent Hx Past Surgical History: No pertinent Hx OB History OB History Care: Good Care Ultrasounds: Normal mid trimester US Obstetrical Complications: None Medical Complications: None Allergies: Coded Allergies: NO KNOWN ALLERGIES (Unverified , 03/22/24) Home Meds Reported Medications Vit W/ Ferrous Fumara ( One Daily) Daily Tab, 1 TAB PO DAILY, #90 TAB 3 Refills 07/28/24 Current Medications Current Medications Medications (Trade) Dose Ordered Sig/Karen Route PRN Reason Start Time Stop Time Status Last Admin Lactated Ringer's 1,000 ml @ 125 mls/hr Q8H IV 08/17/24 10:45 Penicillin G Potassium [id number] units/Dextrose 50 ml @ 100 mls/hr Q4H IV 08/17/24 14:45 Witch Madelaine (Tucks) 1 pad PRN PRN TOP PERINEAL AREA DISCOMFORT 08/17/24 10:45 08/17/24 12:08 Sodium Lauryl Sulfate (Phisoderm) 240 ml PRN PRN TOP PERINEAL AREA DISCOMFORT 08/17/24 10:45 08/17/24 12:08 Benzocaine (Dermoplast) 1 applic PRN PRN TOP PERINEAL AREA DISCOMFORT 08/17/24 10:45 08/17/24 12:08 Butorphanol Tartrate (Stadol Injection) 1 mg Q4HPRN PRN IV MODERATE PAIN (4-6 PAIN SCALE) 08/17/24 10:45 Butorphanol Tartrate (Stadol Injection) 2 mg Q4HPRN PRN IV SEVERE PAIN (7-10 PAIN SCALE) 08/17/24 10:45 Misoprostol (Cytotec) 50 mcg Q4HPRN PRN PO CERVICAL RIPENING 08/17/24 10:45 08/17/24 12:09 Lidocaine HCl (Xylocaine) 20 ml ONCE PRN IJ PERINEAL AREA DISCOMFORT 08/17/24 10:45 Family & Social History Family/Social History Blood Type: O- Rubella: immune RPR/VDRL: Negative GBS Status: Unknown HBsAG: Negative Review of Systems Constitutional: No symptom reported Ears, Nose, & Throat: No symptom reported Eyes: No symptom reported Pulmonary/Respiratory: No symptom reported Cardiovascular: No symptom reported Gastrointestinal: No symptom reported Genitourinary: No symptom reported Musculoskeletal: No symptom reported Skin: No symptom reported Psychiatric: No symptom reported Endocrine: No symptom reported Hemotologic/Lymphatic: No symptom reported OB Admission Exam Physical Exam HEENT: NCAT Heart: Rhythm Normal Lungs: Clear Abdomen: Gravid Extremities: Normal Reflexes: Normal Pelvic Exam: RN EXAM 2/50%/-3 VTX Cervical Dilatation: 2cm Effacement: 50% Station: -3 Membranes: Intact Heart Rate: 130's Accelerations: Accelerations Present Decelerations: No Decelerations Short Term Variability: Present Detention Variability: Average (6-25) Contractions on Admission: >10 Minutes Apart Intensity: Mild OB Plan Plan Admitting Diagnosis: IUP 39.4 wk, Elective Induction of labor GBS unknown Morbid maternal obesity Plan: Induction Induction Methd: Misoprostol protocol Other Plan: Casie in active labor or at [facility]OM Discussed plan of care, informed consent obtained for treatment and management of labor and delivery. Visit Coding OBGYN Date of Service: August 17, 2024 Billing Provider: GORDO GRIMES DO QA TESTER Common Visit Codes: [id number] INP/OBS CARE (HIGH) GORDO GRIMES DO August 17, 2024 13:26
[2024-08-17] MEDS ORDERED: PENICILLIN G POTASSIUM 2,500,000 UNITS in D5W 5% 50 ML IV SCH (14:45)
[2024-08-17] MEDS: LACTATED RINGER'S 1,000 ML IV SCH (16:15)
[2024-08-17] MEDS: DINOPROSTONE 10MG VAG SUPP PV ONE (16:35)
[2024-08-17] MEDS: ePHEDrine SULFATE 50 MG/ML AMP IV ONE (19:15)
[2024-08-17] MEDS: NALOXONE HCL 0.4 MG/ML VIAL IV ONE (19:15)
[2024-08-17] MEDS: PENICILLIN G POT 5MIL/D5 50ML 50 ML IV ONE (19:28)
[2024-08-17] MEDS ORDERED: LACT. RINGERS/OXYTOCIN 20UNITS 1,000 ML IV SCH (19:30)
[2024-08-17] MEDS: LIDOCAINE HCL 2 %PF INJ 10ML AMP IJ ONE (20:04)
--- NOTE | 2024-08-17 22:06 | LDN2 ---
Labor and Delivery Note Date 08/17/24 Age 29 5 Para 4 AB 1 EGA 39.5 Diagnosis Term , delivered Vaginal Delivery: VTX Vacuum Assisted: No Placenta: Spontaneous Sex: Female Apgars 9/9 Amniotic Fluid: Clear Anesthesia Epidural Episiotomy: No Repaired with N/A , no lacerations EBL 50 mL Labs Blood Bank 08/17/24 10:50: Blood Type O NEGATIVE Complications None Visit Coding OBGYN Date of Service: August 17, 2024 Billing Provider: GORDO GRIMES DO BLOCK PILER Common Visit Codes: [id number] INP/OBS CARE(HIGH), PROCEDURE ONLY BLOCK PILER Procedure Codes: [id number]-[id number] OB CARE,VAG DELIVERY GORDO GRIMES DO August 17, 2024 22:06
[2024-08-17] MEDS: LACT. RINGERS/OXYTOCIN 20UNITS 500 ML IV ONE ×2 (22:23→22:24)
[2024-08-17] MEDS: ROPIVACAINE HCL 200 ML ONE (22:32)
[2024-08-17] MEDS ORDERED: ACETAMINOPHEN 325 MG TAB PO PRN (22:45)
[2024-08-17] MEDS ORDERED: IBUPROFEN 600 MG TAB PO PRN (22:45)
[2024-08-18 04:15] VITALS: BP 126/95; PULSE 86; RESP 16; TEMP 98.4; O2SAT 99
--- NOTE | 2024-08-18 06:08 | DVHPN2 ---
Progress Note Date Seen: August 18, 2024 Subjective PPD#1 s/p Induction of labor at Term with -uncomplicated, Morbid maternal obesity S: feeling well, Minimal cramps, no pain. Lochia mild. vital signs Vital Sign Date Time Temp Pulse Resp B/P (MAP) Pulse Ox O2 Delivery O2 Flow Rate FiO2 08/18/24 04:15 98.4 86 16 126/95 (105) 99 98.4 08/17/24 23:00 Room Air Total Intake and Output 08/17/24 08/17/24 08/18/24 15:00 23:00 07:00 Output Total 100 ml Balance -100 ml medications Current Medications Medications Dose Ordered Sig/Karen Route Start Time Stop Time Status Last Admin Dose Admin Lactated Ringer's 1,000 ml @ 125 mls/hr Q8H IV 08/17/24 10:45 08/17/24 16:15 125 MLS/HR Witch Madelaine 1 pad PRN PRN TOP 08/17/24 10:45 08/17/24 12:08 1 PAD Sodium Lauryl Sulfate 240 ml PRN PRN TOP 08/17/24 10:45 08/17/24 12:08 240 ML Benzocaine 1 applic PRN PRN TOP 08/17/24 10:45 08/17/24 12:08 1 APPLIC Lidocaine HCl 20 ml ONCE PRN IJ 08/17/24 10:45 Ibuprofen 600 mg Q6HP PRN PO 08/17/24 22:45 Acetaminophen 650 mg Q4HP PRN PO 08/17/24 22:45 laboratory and microbiology Laboratory Tests 08/17/24 10:50 Test 08/17/24 10:50 Range/Units Serum Glucose 74 74-106 mg/dL Objective O: AFVSS Chest: heart and lung sounds normal. Abd soft, non-tender, fundus firm, BS, no rebound or guarding, Ext Neg Homans, Non-tender, edema Lochia - minimal Labs Pending Assessment/Plan PPD#1 s/p doing well Morbid Obesity BMI 42 Plan: - Continue supportive care - Possible Discharge this evening or tomorrow, if remains stable Plan discussed with: Patient Visit Coding OBGYN Date of Service: August 18, 2024 Billing Provider: GORDO GRIMES DO RESULTS TECHNICIAN Common Visit Codes: [id number] INP/OBS CARE(MOD) GORDO GRIMES DO August 18, 2024 06:08
[2024-08-18 07:00] VITALS: BP 132/70; PULSE 87; RESP 18; TEMP 97.3; O2SAT 97
[2024-08-18 11:00] VITALS: BP 128/75; PULSE 95; RESP 18; TEMP 99.1; O2SAT 95
[2024-08-18 15:00] VITALS: BP 135/77; PULSE 87; RESP 18; TEMP 98.1; O2SAT 95
[2024-08-18 19:00] VITALS: BP 132/86; PULSE 86; RESP 14; TEMP 98; O2SAT 95
[2024-08-18 23:00] VITALS: BP 133/65; PULSE 86; RESP 14; TEMP 98.1; O2SAT 95
[2024-08-19 03:00] VITALS: BP 135/70; PULSE 88; RESP 15; TEMP 98; O2SAT 95
--- NOTE | 2024-08-19 03:18 | DVHDS2 ---
Physician Discharge Progress N Final Diagnosis: Term , delivered Secondary Diagnosis: Morbid obesity Operations or Procedures: Operations or Procedures Induction of labor w/ Commentary: Commentary Normal labor/delivery and uncomplicated PP course Condition on Discharge: Stable Disposition: Home Discharge Instructions: Diet: Regular Activity: Light activity Activity comment: Pelvic rest x 6 wk Follow Up/Referral: [address] Peng Medications: Ibuprofen PRN pain Follow Up Care: Discharge Statement: "Patient was advised to return to the ER or call 911 if any headaches, dizziness, shortness of breath, chest pain, abdominal pain, bleeding, fevers, or worsening of medical condition. Patient was counseled about treatment plan, medications, possible side effects, patientverbalized understanding. All questions were answered to the best of my ability. This discharge took greater then 30 minutes in planning, reviewing d ocumentation, counseling the patient, and discussing with other team members." Visit Coding OBGYN Date of Service: August 19, 2024 Billing Provider: GORDO GRIMES DO FISHING BOAT CAPTAIN Common Visit Codes: 77193-QVZ/OBS DISCH DAY <30MIN GORDO GRIMES DO August 19, 2024 03:18
[2024-08-19] MEDS ORDERED: IBU600T PO (03:19)
== END 2024-08-19 10:58 | disposition home or self-care (01) | DRG 807 ==
LOC: LDRP 10:15
PROVIDERS: ADMIT Obstetrics & Gynecology; ATTEND Obstetrics & Gynecology
PROC: 10E0XZZ Delivery of Products of Conception, External Approach (ICD-10-PCS; principal; 2024-08-17)
PROC: 3E0R3BZ Introduction of Anesthetic Agent into Spinal Canal, Percutaneous Approach (ICD-10-PCS; 2024-08-17)
PROC: 00HU33Z Insertion of Infusion Device into Spinal Canal, Percutaneous Approach (ICD-10-PCS; 2024-08-17)
PROC: 3E0234Z Introduction of Serum, Toxoid and Vaccine into Muscle, Percutaneous Approach (ICD-10-PCS; 2024-08-19)
DX: O99.214 Obesity complicating childbirth (principal); Z37.0 Single live birth; E66.01 Morbid (severe) obesity due to excess calories; Z3A.39 39 weeks gestation of pregnancy; Z23 Encounter for immunization
CPT/HCPCS: 36415; 59409; 62282; 80053; 80307; 81001; 82570; 84156; 84550; 85025; 85610; 85730; 86780; 86850; 86900; 86901; 90384; 94760; 96360; 96361; 96365; 96366; 96372; G0378; J2540; J2590; J7060